=== PATIENT | female | born 1990 | race Caucasian/White ===

== ENCOUNTER 2017-04-03 08:27 | Emergency (ER) | payer OTHER ==
[~2017-04-03] VITALS: Ht 157.5 cm; Wt 59.0 kg
[2017-04-03 08:46] VITALS: BP 112/69
== END 2017-04-03 08:51 | disposition home or self-care (01) ==
LOC: EMS 08:30
DX: J38.3 Other diseases of vocal cords (principal); K21.9 Gastro-esophageal reflux disease without esophagitis; E03.9 Hypothyroidism, unspecified
CPT/HCPCS: 99282